=== PATIENT | female | born 1940 | race Caucasian/White ===

== ENCOUNTER 2018-04-28 00:42 | Inpatient (IN) ==
[2018-04-28] MEDS ORDERED: Sod Chloride 0.9% Inj 1,000 ML IV.SIG ONE (02:17)
[2018-04-28] MEDS ORDERED: Morphine Inj 4 MG/ML Vial IV.PUSH ONE (02:17)
[2018-04-28 02:20] LABS: Chloride 108 meq/L (98-107); Potassium 3.3 meq/L (3.5-5.1); Sodium 142 meq/L (136-145)
[2018-04-28 02:23] LABS: Calcium 8.8 mg/dL (8.5-10.1)
[2018-04-28 02:24] LABS: Albumin 3.5 g/dL (3.4-5.0); Anion Gap 8 meq/L (5-15); Blood Urea Nitrogen 11 mg/dL (7-18); Carbon Dioxide 25.6 meq/L (21.0-32.0); Glucose,Random 130 mg/dL (74-106)
--- NOTE | 2018-04-28 02:25 | ED ---
HPI General Chief Complaint: Abdominal Pain Stated Complaint: Vomiting x 4 hrs,abd pain Time Seen by Provider: 04/28/18 02:17 Source: patient Mode of arrival: ambulatory Limitations: no limitations History of Present Illness HPI narrative: 77-year-old female presents to the emergency department by private transportation for complaint of severe abdominal pain. Patient has history of previous bowel obstruction. Patient has history of ulcerative colitis is followed by Dr. Marcial on has had endoscopy and notes history of narrowing of the small intestine causing previous small bowel obstruction. No hematemesis no coffee-ground emesis no feculent emesis. Patient had ongoing nausea vomiting since 230 this afternoon after eating a banana. Patient's had small amount of flatus and stool. Patient denies fever chills. No chest pain no shortness of breath. Past medical history significant for ulcerative colitis hypertension and myocardial infarction as well as hypothyroidism. Patient is not allowed to take aspirin due to her GI history according to the patient. Patient requests something for pain his pain is moderate to severe and is able to take morphine sulfate without adverse reaction. Patient denies other concerns or complaints. MD complaint: abdominal pain Onset (ago): hour(s) (10; onset after eating banana at 2:30 PM) Pain Consistency: constant and colicky Location: periumbilical Quality: cramping Radiation: none Migration to: no migration Exacerbating factors: nothing Context: possible food poisoning (onset after eating banana) and history of similar episodes (narrowing of small ontestine --SBO in the past) Associated symptoms: nausea and vomiting Treatments prior to arrival: other (none) Related Data Home Medications Medication Instructions Recorded Confirmed amlodipine 10 mg PO DAILY 04/28/18 04/28/18 atorvastatin [Lipitor] 40 mg PO DAILY 04/28/18 04/28/18 dicyclomine 20 mg PO QID 04/28/18 04/28/18 levothyroxine 88 mcg PO DAILY 04/28/18 04/28/18 olmesartan [Benicar] 40 mg PO DAILY 04/28/18 04/28/18 tramadol 50 mg PO Q6H PRN 04/28/18 04/28/18 Allergies Allergy/AdvReac Type Severity Reaction Status Date / Time hydromorphone AdvReac Severe INCREASED Verified 04/03/18 19:28 NAUSEA, DIZZINESS AND DIAPHORESIS Review of Systems ROS: all other systems reviewed are negative COUNT INCLUDES [facility] Medical History Medical History Crohn disease (Acute) Hyperlipemia (Acute) Hypertension (Acute) Hypothyroid (Acute) Surgical History Surgical History History of lumbar surgery (Acute) Previous back surgery (Acute) Family History Family History Other Family history in first degree relatives is unremarkable Social History Social History Substance History: No History of Abuse Second Hand Smoke Exposure: No Smoking Status: Former smoker Tobacco Type: Cigarettes How Often Do You Have a Drink Containing Alcohol: Never Recent Travel in [facility] within the Last 8 Weeks: No Recent Out of Country Travel within the Last 8 Weeks: No Immunization History Tetanus Immunization: Unsure Hx Influenza Vaccine This Season: Yes Exam Narrative Exam Narrative: GENERAL: Well-nourished, well-developed patient. SKIN: Focused skin assessment warm/dry. HEAD: Normocephalic. EYES: No scleral icterus. No injection or drainage. NECK: Supple, trachea midline. No JVD or lymphadenopathy. CARDIOVASCULAR: Regular rate and rhythm without murmurs, gallops, or rubs. RESPIRATORY: Breath sounds equal bilaterally. No accessory muscle use. GASTROINTESTINAL: Abdomen soft, non-tender, nondistended. MUSCULOSKELETAL: No cyanosis, or edema. BACK: Nontender without obvious deformity. No CVA tenderness. Course Initial Documented Vital Signs Pulse Rate 53 L 04/28/18 00:49 Blood Pressure 116/60 04/28/18 00:49 Pulse Oximetry 99 04/28/18 00:49 Last Documented Vital Signs Temperature 97.7 F 04/28/18 12:00 Pulse Rate 72 04/28/18 12:00 Respiratory Rate 18 04/28/18 13:04 Blood Pressure 164/75 H 04/28/18 12:00 Pulse Oximetry 96 04/28/18 12:00 Medical Decision Making [facility] Narrative Medical decision making narrative: -year-old female with abdominal pain nausea vomiting and history of small bowel obstruction IV access obtained specimens collections of resulting imaging studies ordered along with EKG and troponin I for history of prior MT. Lab values grossly within normal range CT abdomen pelvis per reading radiologist concerning for early partial small bowel obstruction or ileus patient continues to have complaint of nausea plan will be to admit for observation for bowel rest and likely patient will require more extensive intervention such as NG tube placement with suction or surgical evaluation Patient discussed with on-call medicine service for observation Medical Screen Exam Complete: Yes Emergency Medical Condition: Yes Differential Diagnosis Differential Diagnosis: Abdominal pain, gastroenteritis, colitis, enteritis, partial small bowel obstruction, exacerbation of inflammatory bowel disease, mesenteric ischemia, ACS, MT, UTI Medical Records Medical records reviewed: Yes I reviewed the patient's medical records. Lab Data Result diagrams: 04/28/18 01:40 04/28/18 01:40 Lab Results 04/28/18 04/28/18 04/28/18 Range/Units 01:40 01:40 02:45 CBC w Diff Auto diff final WBC 7.3 (4.0-11.0) th/mm3 RBC 4.38 (4.00-5.30) mil/mm3 Hgb 13.4 (11.6-15.3) gm/dL Hct 40.7 (35.0-46.0) % MCV 92.9 (80.0-100.0) fL MCH 30.5 (27.0-34.0) pg MCHC 32.9 (32.0-36.0) % RDW 14.6 (11.6-17.2) % Plt Count 236 (150-450) th/mm3 MPV 8.2 (7.0-11.0) fL Neut % (Auto) 71.5 H (16.0-70.0) % Lymph % (Auto) 19.3 (9.0-44.0) % Gibson % (Auto) 7.4 (0.0-8.0) % Eos % (Auto) 1.3 (0.0-4.0) % Baso % (Auto) 0.5 (0.0-2.0) % Neut # (Auto) 5.3 (1.8-7.7) th/mm3 Lymph # (Auto) 1.4 (1.0-4.8) th/mm3 Gibson # (Auto) 0.5 (0.0-0.9) th/mm3 Eos # (Auto) 0.1 (0.0-0.4) th/mm3 Baso # (Auto) 0.0 (0.0-0.2) th/mm3 WBC Differential . Differential Comment . Sodium 142 (136-145) meq/L Potassium 3.3 L (3.5-5.1) meq/L Chloride 108 H (98-107) meq/L Carbon Dioxide 25.6 (21.0-32.0) meq/L Anion Gap 8 (5-15) meq/L BUN 11 (7-18) mg/dL Creatinine 0.72 (0.50-1.00) mg/dL Estimated GFR 79 L (>89) mL/min Random Glucose 130 H (74-106) mg/dL Calcium 8.8 (8.5-10.1) mg/dL Total Bilirubin 0.4 (0.2-1.0) mg/dL AST 18 (15-37) U/L ALT 23 (10-53) U/L Alkaline Phosphatase 61 (45-117) U/L Troponin I Less than 0.02 L (0.02-0.05) ng/mL Total Protein 6.7 (6.4-8.2) g/dL Albumin 3.5 (3.4-5.0) g/dL Lipase 67 L (73-393) U/L Urine Color (Yellw/Straw) Urine Clarity (Clear) Urine pH (5.0-8.5) Ur Specific [place] (1.002-1.035) Urine Protein (Neg-Trace) mg/dL Urine Glucose (UA) (Negative) mg/dL Urine Ketones (Negative) mg/dL Urine Occult Blood (Negative) Urine Nitrate (Negative) Urine Bilirubin (Negative) Urine Urobilinogen (Less than 2) mg/dL Ur Leukocyte Esterase (Negative) Urine RBC (0-3) /hpf Urine WBC (0-5) /hpf Ur Squamous Epith Cells (0-5) /hpf Micro UA Comment Ur Microscopic Review Urine Culture Comments 04/28/18 Range/Units 04:04 CBC w Diff WBC (4.0-11.0) th/mm3 RBC (4.00-5.30) mil/mm3 Hgb (11.6-15.3) gm/dL Hct (35.0-46.0) % MCV (80.0-100.0) fL MCH (27.0-34.0) pg MCHC (32.0-36.0) % RDW (11.6-17.2) % Plt Count (150-450) th/mm3 MPV (7.0-11.0) fL Neut % (Auto) (16.0-70.0) % Lymph % (Auto) (9.0-44.0) % Gibson % (Auto) (0.0-8.0) % Eos % (Auto) (0.0-4.0) % Baso % (Auto) (0.0-2.0) % Neut # (Auto) (1.8-7.7) th/mm3 Lymph # (Auto) (1.0-4.8) th/mm3 Gibson # (Auto) (0.0-0.9) th/mm3 Eos # (Auto) (0.0-0.4) th/mm3 Baso # (Auto) (0.0-0.2) th/mm3 WBC Differential Differential Comment Sodium (136-145) meq/L Potassium (3.5-5.1) meq/L Chloride (98-107) meq/L Carbon Dioxide (21.0-32.0) meq/L Anion Gap (5-15) meq/L BUN (7-18) mg/dL Creatinine (0.50-1.00) mg/dL Estimated GFR (>89) mL/min Random Glucose (74-106) mg/dL Calcium (8.5-10.1) mg/dL Total Bilirubin (0.2-1.0) mg/dL AST (15-37) U/L ALT (10-53) U/L Alkaline Phosphatase (45-117) U/L Troponin I (0.02-0.05) ng/mL Total Protein (6.4-8.2) g/dL Albumin (3.4-5.0) g/dL Lipase (73-393) U/L Urine Color Yellow (Yellw/Straw) Urine Clarity Clear (Clear) Urine pH 6.0 (5.0-8.5) Ur Specific [place] Less/equal 1.005 (1.002-1.035) Urine Protein Negative (Neg-Trace) mg/dL Urine Glucose (UA) Negative (Negative) mg/dL Urine Ketones Negative (Negative) mg/dL Urine Occult Blood Trace (Negative) Urine Nitrate Negative (Negative) Urine Bilirubin Negative (Negative) Urine Urobilinogen 0.2 (Less than 2) mg/dL Ur Leukocyte Esterase Negative (Negative) Urine RBC 0-3 (0-3) /hpf Urine WBC 0-5 (0-5) /hpf Ur Squamous Epith Cells 0-5 (0-5) /hpf Micro UA Comment Culture not ind Ur Microscopic Review Microscopic reviewed Urine Culture Comments Culture not ind Imaging Data Radiologist's impression: Abdomen X-Ray 04/28/18 00:00 CONCLUSION: Nonspecific bowel gas pattern some dilatation of distal small bowel look compared to proximal Abdomen/Pelvis CT 04/28/18 02:17 CONCLUSION: 1. Scattered short segment foci of mild Crohn's involvement involving the ileum and distal jejunum are noted. No high-grade inflammatory changes are demonstrated. There is an associated mild small bowel ileus and/or low-grade/ partial obstruction. 2. Stable chronic findings as above. 3. New but nonacute, healed left inferior pubic ramus fracture. Discharge Plan Discharge Disposition Patient Disposition: 30 Still Patient Discharge Condition Condition: Stable Discharge Details Diagnosis: Small bowel obstruction, Ileus Physicians Team ED Provider: Aixa Palmer Primary Care Provider: Lanre Carrasco Attending Provider: Mark Castro Other Providers: Kris Gleason Discharge Interventions Interventions: ED Discharge Assessment Last Done: 04/28/18 06:03 Vital Signs Last Done: 04/28/18 01:22 Status ED Status: Left Department Discharge Information Discharge Date/Time: 04/28/18 06:04
[2018-04-28 02:27] LABS: Alanine Aminotransferase 23 U/L (10-53); Aspartate Aminotransferase 18 U/L (15-37); Glomerular Filtration Rate 79 mL/min (>89)
[2018-04-28 02:28] LABS: Total Protein 6.7 g/dL (6.4-8.2)
[2018-04-28 02:30] LABS: Alkaline Phosphatase 61 U/L (45-117)
[2018-04-28 02:46] LABS: Baso % (Auto) 0.5 % (0.0-2.0); Eos # (Auto) 0.1 th/mm3 (0.0-0.4); Eos % (Auto) 1.3 % (0.0-4.0); Hematocrit 40.7 % (35.0-46.0); Hemoglobin 13.4 gm/dL (11.6-15.3); Lymph # (Auto) 1.4 th/mm3 (1.0-4.8); Lymph % (Auto) 19.3 % (9.0-44.0); Mean Corpuscular HGB Conc 32.9 % (32.0-36.0); Mean Corpuscular Hemoglobin 30.5 pg (27.0-34.0); Mean Corpuscular Volume 92.9 fL (80.0-100.0); Mean Platelet Volume 8.2 fL (7.0-11.0); Mono # (Auto) 0.5 th/mm3 (0.0-0.9); Mono % (Auto) 7.4 % (0.0-8.0); Neut # (Auto) 5.3 th/mm3 (1.8-7.7); Neut % (Auto) 71.5 % (16.0-70.0); Platelet Count 236 th/mm3 (150-450); Red Blood Count 4.38 mil/mm3 (4.00-5.30); Red Cell Distribution Width 14.6 % (11.6-17.2); White Blood Count 7.3 th/mm3 (4.0-11.0)
[2018-04-28 02:54] LABS: Lipase 67 U/L (73-393)
[2018-04-28] MEDS ORDERED: Sod Chloride 0.9% Inj 1,000 ML IV.CONT SCH (04:00)
[2018-04-28] MEDS ORDERED: Morphine Inj 4 MG/ML Vial IV.PUSH PRN (04:00)
[2018-04-28 04:08] LABS: Bilirubin,Urine Negative (Negative); Clarity,Urine Clear (Clear); Color,Urine Yellow (Yellw/Straw); Glucose,Urine (UA) Negative (Negative); Leukocyte Esterase,Urine Negative (Negative); Nitrite,Urine Negative (Negative); Specific Gravity,Urine Less/Equal 1.005 (1.002-1.035); Urobilinogen,Urine 0.2 mg/dL (Less than 2)
[2018-04-28 04:12] LABS: RBC,Urine 0-3 /hpf (0-3); WBC,Urine 0-5 /hpf (0-5)
[2018-04-28 04:13] LABS: Squamous Epithelial Cell,Urine 0-5 /hpf (0-5)
[2018-04-28] MEDS: Levothyroxine 88 MCG Tablet PO SCH (07:51)
[2018-04-28] MEDS: Potassium Chlor 20 mEq Premix 20 MEQ/100 ML PIGGYBACK IV.SIG ONE ×2 (12:39→13:08)
[2018-04-29] MEDS ORDERED: Docusate Sodium 100 MG Capsule PO ONE (00:22)
[2018-04-29] MEDS ORDERED: Acetaminophen 325 MG Tablet PO ONE (00:23)
[2018-04-29] MEDS ORDERED: Acetaminophen 325 MG Tablet PO PRN (00:25)
[2018-04-29] MEDS: Levothyroxine 88 MCG Tablet PO SCH (06:02)
[2018-04-29 08:41] LABS: Baso # (Auto) 0.1 th/mm3 (0.0-0.2); Baso % (Auto) 1.2 % (0.0-2.0); Eos # (Auto) 0.1 th/mm3 (0.0-0.4); Eos % (Auto) 1.9 % (0.0-4.0); Hematocrit 40.9 % (35.0-46.0); Hemoglobin 13.8 gm/dL (11.6-15.3); Lymph # (Auto) 1.3 th/mm3 (1.0-4.8); Lymph % (Auto) 24.5 % (9.0-44.0); Mean Corpuscular HGB Conc 33.7 % (32.0-36.0); Mean Corpuscular Hemoglobin 30.7 pg (27.0-34.0); Mean Corpuscular Volume 90.9 fL (80.0-100.0); Mean Platelet Volume 7.7 fL (7.0-11.0); Mono # (Auto) 0.5 th/mm3 (0.0-0.9); Mono % (Auto) 8.8 % (0.0-8.0); Neut # (Auto) 3.2 th/mm3 (1.8-7.7); Neut % (Auto) 63.6 % (16.0-70.0); Platelet Count 244 th/mm3 (150-450); Red Cell Distribution Width 14.9 % (11.6-17.2); White Blood Count 5.2 th/mm3 (4.0-11.0)
[2018-04-29 08:52] LABS: Chloride 114 meq/L (98-107); Potassium 4.1 meq/L (3.5-5.1); Sodium 145 meq/L (136-145)
[2018-04-29 08:56] LABS: Calcium 8.2 mg/dL (8.5-10.1)
[2018-04-29 08:57] LABS: Anion Gap 6 meq/L (5-15); Blood Urea Nitrogen 5 mg/dL (7-18); Carbon Dioxide 24.8 meq/L (21.0-32.0); Glucose,Random 89 mg/dL (74-106)
[2018-04-29 09:00] LABS: Glomerular Filtration Rate Greater Than 89 mL/min (>89)
[2018-04-29] MEDS ORDERED: amLODIPine 10 MG Tablet PO SCH (09:00)
--- NOTE | 2018-04-29 12:56 | ECG ---
Date Performed: 04/28/2018 Time Performed: 02:24:18 PTAGE: 77 years EKG: SINUS BRADYCARDIA BORDERLINE ECG PREVIOUS TRACING : 04/03/2018 19.33 Compared to previous tracing, rate has decreased, clarai al transition may be due to lead placement DOCTOR: Edmond Ortiz Interpretating Date/Time 04/29/2018 12:56:07
== END 2018-04-29 11:42 | disposition home or self-care (01) ==
LOC: PHED 00:42 → PHEDA 00:42 → PH3 05:06
PROVIDERS: ADMIT Internal Medicine; ATTEND Internal Medicine